=== PATIENT | female | born 2000 | race Caucasian/White ===

== ENCOUNTER 2021-07-05 12:43 | Emergency (ER) | payer MEDICAID, OTHER ==
[2021-07-05] MEDS ORDERED: Acetaminophen 500 MG TAB ONE (12:54)
[2021-07-05] MEDS ORDERED: Ondansetron ODT 4 MG TAB ONE (13:03)
[2021-07-05 13:25] LABS: Bilirubin Negative (Negative); Blood, Urine Large (Negative); Clarity Slightly Cloudy (Clear); Glucose, Urine (Dipstick) Negative (Negative); Ketone, Urine Negative (Negative); Leukocyte Large (Negative); Nitrite Positive (Negative); Protein, Urine (Dipstick) 100 mg/dL (Neg-Trace)
[2021-07-05 13:28] LABS: Pregnancy Test - Urine (BHCG) Negative (Negative); Pregu Control Background? CLEAR/WHITE (CLR/WHITE); Pregu Control Bar Appear? YES (CONTROL BAR)
[2021-07-05 13:36] LABS: Bacteria/HPF 2+ HPF (None Seen); Squamous Epithelial 0-3 HPF (0-3); WBC/HPF Greater than 50 HPF (0-3)
[2021-07-05] MEDS ORDERED: cefTRIAXone\\ROCEPHIN 1 GM VIAL ONE (13:36)
[2021-07-05] MEDS ORDERED: Sterile Water 10 ML ONE (13:36)
[2021-07-05 23:30] LABS: SARS-CoV-2 PCR by NAA Not Detected (NotDetected)
== END 2021-07-05 13:20 | disposition home or self-care (01) ==
LOC: BURERS 12:43
DX: A08.4 Viral intestinal infection, unspecified (principal); R00.0 Tachycardia, unspecified; J45.909 Unspecified asthma, uncomplicated; F17.200 Nicotine dependence, unspecified, uncomplicated; Z20.822 Contact with and (suspected) exposure to COVID-19
CPT/HCPCS: 81003; 81015; 81025; 87804; 96372; 99284; J0696; Q0162; U0003; U0005

== ENCOUNTER 2022-01-24 07:04 | Emergency (ER) | payer MEDICAID, OTHER ==
[2022-01-24] MEDS ORDERED: Iopamidol 370 76% 100 ML VIAL FS ONE (07:05)
[2022-01-24] MEDS ORDERED: Glycopyrrolate 0.4 MG/ 2 ML VIAL ONE (07:42)
[2022-01-24] MEDS ORDERED: Ondansetron PF 4 MG/2 ML Vial ONE (07:42)
[2022-01-24 07:48] LABS: #Basophils 0.1 thou/uL (0.0-0.2); #Eosinphils 0.6 thou/uL (0.0-0.7); #Lymphocytes 2.3 thou/uL (1.20-3.40); #Monocytes 0.7 thou/uL (0.11-0.59); #Neutrophils 10.2 thou/uL (1.40-6.50); %Basophils 1.1 % (0.0-1.0); %Eosinophils 4.6 % (0.0-10.0); %Lymphocytes 16.4 % (21.0-51.0); %Monocytes 4.8 % (0.0-10.0); %Neutrophils 73.1 % (42.0-75.0); Mean Corpuscular HGB CONC 34.5 g/dL (32.0-36.0); Mean Corpuscular Hemoglobin 31.7 pg (27.0-31.0); Mean Corpuscular Volume 91.7 fL (78.0-98.0); Mean Platelet Volume 7.7 fL (7.4-10.4); Platelet Count 234 thou/uL (130-400); RBC Distribution Width 13.2 % (11.5-14.5); Red Blood Cell (RBC) Count 4.72 mill/uL (4.20-5.40); White Blood Cell (WBC) Count 13.9 thou/uL (4.8-10.8)
[2022-01-24 07:59] LABS: Bilirubin Negative (Negative); Blood, Urine Moderate (Negative); Clarity Clear (Clear); Glucose, Urine (Dipstick) Negative (Negative); Ketone, Urine Negative (Negative); Leukocyte Negative (Negative); Nitrite Negative (Negative); Protein, Urine (Dipstick) Negative (Neg-Trace); Urobilinogen 0.2 mg/dL (Less than 2); pH, Urine 5.5 (5.0-9.0)
[2022-01-24] MEDS ORDERED: Fentanyl 100 MCG/2 ML VIAL ONE (08:02)
[2022-01-24 08:03] LABS: ALT (SGPT) 37 U/L (8-55); AST (SGOT) 18 U/L (5-34); Albumin 4.3 g/dL (3.5-5.0); Alkaline Phosphatase 58 U/L (40-110); Anion Gap 15 mmol/L (10-20); BUN (Urea Nitrogen) 10 mg/dL (7.0-18.7); Bilirubin, Total 0.4 mg/dL (0.2-1.2); Calc. Creatinine Clearance 0 mL/min (70-130); Calcium 8.8 mg/dL (7.8-10.44); Carbon Dioxide 20 mmol/L (22-29); Chloride 109 mmol/L (98-107); Estimated GFR 126; Glucose 130 mg/dL (70-105); Lipase 10 U/L (8-78); Potassium 4.2 mmol/L (3.5-5.1); Protein, Total 7.3 g/dL (6.0-8.3); Sodium 140 mmol/L (136-145)
[2022-01-24 08:07] LABS: Bacteria/HPF Rare-Few HPF (None Seen); Squamous Epithelial 0-3 HPF (0-3); WBC/HPF 0-3 HPF (0-3)
[2022-01-24 08:08] LABS: Pregnancy Test - Urine (BHCG) Negative (Negative)
[2022-01-24 08:09] LABS: Pregu Control Background? CLEAR/WHITE (CLR/WHITE); Pregu Control Bar Appear? YES (CONTROL BAR)
[2022-01-24] MEDS ORDERED: Famotidine/PF 20 mg/2ml Vial ONE (08:10)
== END 2022-01-24 09:19 | disposition home or self-care (01) ==
LOC: BURERS 07:04
DX: K80.70 Calculus of gallbladder and bile duct without cholecystitis without obstruction (principal); R11.2 Nausea with vomiting, unspecified; F17.200 Nicotine dependence, unspecified, uncomplicated
CPT/HCPCS: 74177; 80053; 81003; 81015; 81025; 83690; 85025; 96361; 96365; 96375; J2405; J3010; Q9967; S0028

== ENCOUNTER 2022-07-17 21:10 | Emergency (ER) | payer MEDICAID, OTHER ==
[2022-07-17] MEDS ORDERED: Acetaminophen 500 MG TAB ONE (22:43)
[2022-07-17] MEDS ORDERED: Cephalexin 250 MG CAP ONE (22:43)
== END 2022-07-17 22:57 | disposition home or self-care (01) ==
LOC: BURERS 21:10
DX: O99.891 Other specified diseases and conditions complicating pregnancy (principal); H66.93 Otitis media, unspecified, bilateral; O99.332 Smoking (tobacco) complicating pregnancy, second trimester; F17.210 Nicotine dependence, cigarettes, uncomplicated; Z3A.25 25 weeks gestation of pregnancy
CPT/HCPCS: 99282

== ENCOUNTER 2024-08-20 17:51 | Emergency (ER) | payer OTHER, SELFPAY ==
[2024-08-20] MEDS ORDERED: Azithromycin 250 MG TAB ONE (18:22)
[2024-08-20] MEDS ORDERED: predniSONE 20 MG TAB ONE (18:22)
== END 2024-08-20 18:28 | disposition home or self-care (01) ==
LOC: BURERS 17:51
DX: J11.1 Influenza due to unidentified influenza virus with other respiratory manifestations (principal); F17.210 Nicotine dependence, cigarettes, uncomplicated
CPT/HCPCS: 87400; 99283; J7512